=== PATIENT | female | born 1960 | race Two or more races ===

== ENCOUNTER 2024-08-21 14:11 | Emergency (ER) | payer OTHER ==
[~2024-08-21] VITALS: Ht 165.1 cm; Wt 54.4 kg
[~2024-08-21 14:11] MED LIST: AVAPRO150 MG PO
[2024-08-21] MEDS ORDERED: SIMVASTATIN20 MG PO (14:23)
[2024-08-21] MEDS ORDERED: LOSARTAN POTASS50 MG PO (14:23)
[2024-08-21 16:59] LABS: HEMATOCRIT 33.6 % (36.0-45.00); HEMOGLOBIN 11.6 g/dL (12.0-15.00); MEAN CELL VOLUME 81.2 fL (80.00-100.00); MEAN CORPUSCULAR HEMOGLOBIN 28.1 pg (27.00-32.0); MEAN CORPUSCULAR HGB CONC 34.6 g/dl (32.0-36.0); PLATELET COUNT 282 K/uL (150-450); RED BLOOD COUNT 4.14 M/uL (4.00-6.00); RED CELL DISTRIBUTION WIDTH 13.2 % (11.5-14.5)
[2024-08-21 17:20] LABS: ALBUMIN 3.7 gm/dL (3.4-5.0); BILIRUBIN TOTAL 0.59 mg/dL (0.3-1.2); CALCIUM 9.3 mg/dL (8.5-10.1); CREATININE SERUM 0.68 mg/dL (0.55-1.02); GFR 87.39; GLOBULINA 3.9 G/DL (2.4-3.5); POTASSIUM 3.91 mEq/L (3.5-5.1); TOTAL PROTEIN 7.6 gm/dL (6.4-8.2)
[2024-08-21 17:23] LABS: PH,URINE 7.5 (5.0-8.0); URINE APPEARANCE Clear; URINE BILIRRUBIN Negative (NEGATIVE); URINE BLOOD Negative; URINE COLOR Yellow; URINE GLUCOSE Negative (NEGATIVE); URINE KETONE Negative (NEGATIVE); URINE LEUKOCYTE Moderate; URINE NITRATE Negative; URINE PROTEIN Negative (NEGATIVE)
[2024-08-21 17:26] LABS: URINE BACTERIA 62.9 uL (0.0-1933); URINE EPITHELIAL CELLS 20.5 uL (0.0-38.8); URINE RBC 6.4 uL (0.0-20.8); URINE WBC 154.9 uL (0.0-23.2)
[2024-08-21 17:27] LABS: URINE CAST 0.15 uL (0.0-1.40)
[2024-08-21] MEDS ORDERED: CIPRO500 MG PO (21:19)
[2024-08-21] MEDS ORDERED: METRONIDAZOLE500 MG PO (21:20)
[2024-08-21] MEDS ORDERED: HYOSCYAMINE0.125 M2 PO (21:22)
[2024-08-21] MEDS ORDERED: CIPROFLOXACIN IV STA (21:23)
[2024-08-21] MEDS ORDERED: DEXTROSE IV STA (21:23)
[2024-08-21] MEDS ORDERED: DEXAMETHASONE SODIUM PHOSPHATE 4 MG/ML VIAL IM STA (21:25)
[2024-08-21] MEDS ORDERED: KETOROLAC TROMETHAMINE 60 MG VIAL IM STA (21:25)
[2024-08-21] MEDS ORDERED: ORPHENADRINE CITRATE 30 MG/ML AMPUL IM STA (21:26)
[2024-08-21] MEDS ORDERED: CIPROFLOXACIN IN 5 % DEXTROSE 400 MG/200 ML PIGGYBAG IV STA (21:28)
[2024-08-21] MEDS ORDERED: METROnidazole 500 MG TABLET PO STA (21:28)
[2024-08-21] MEDS ORDERED: INTESTINEX680 M2 PO (21:40)
== END 2024-08-21 23:53 | disposition home or self-care (01) ==
LOC: ER 14:13
DX: K57.32 Diverticulitis of large intestine without perforation or abscess without bleeding (principal); R10.9 Unspecified abdominal pain; K46.9 Unspecified abdominal hernia without obstruction or gangrene
CPT/HCPCS: 36415; 71046; 74176; 93005; 96365; 96372; 99284; J0744; J1100; J1885; J2360

== ENCOUNTER 2025-07-16 13:18 | Emergency (ER) | payer OTHER ==
[~2025-07-16] VITALS: Ht 165.1 cm; Wt 54.4 kg
[~2025-07-16 13:18] MED LIST changes: +CIPRO500 MG PO; +HYOSCYAMINE0.125 M2 PO; +INTESTINEX680 M2 PO; +LOSARTAN POTASS50 MG PO; +METRONIDAZOLE500 MG PO; +SIMVASTATIN20 MG PO
[2025-07-16] MEDS ORDERED: ZOCOR20 MG PO (14:29)
[2025-07-16] MEDS ORDERED: KETOROLAC TROMETHAMINE 30 MG VIAL IM STA (14:55)
[2025-07-16] MEDS ORDERED: ORPHENADRINE CITRATE 30 MG/ML AMPUL IM STA (14:55)
[2025-07-16] MEDS ORDERED: DEXAMETHASONE 4 MG TABLET PO STA (14:55)
== END 2025-07-16 16:33 | disposition home or self-care (01) ==
LOC: ER 13:18
DX: M25.511 Pain in right shoulder (principal)
CPT/HCPCS: 73030; 96372; 99283; J1885; J2360